=== PATIENT | female | born 1935 | race Caucasian/White ===

== ENCOUNTER 2022-02-18 12:31 | Emergency (ER) | payer MEDICARE, BC ==
[2022-02-18 12:59] VITALS: TEMP 97.7
--- NOTE | 2022-02-18 13:13 | ED ---
General Adult HPI - General Chief complaint: Fall Stated complaint: fall - hip pain Time Seen by Provider: 02/18/22 12:40 Source: patient, EMS, RN notes reviewed, old records reviewed Mode of arrival: EMS Limitations: no limitations - History of Present Illness Initial comments: This is an 86-year-old female presents emergency Department complaining of right hip pain. Patient states she is post have a hip replacement any help but today she lost her balance and fell onto her right hip. Patient denies hitting her head or neck. Patient denies any chest pain patient denies any upper extremity pain. Patient denies any back pain. Patient denies any pain of the left hip and she denies any knee pain and ankle pain or foot pain. Patient denies any chest pain or shortness of breath prior to falling patient denies being lightheaded or dizzy prior to falling. - Related Data Home Medications Medication Instructions Recorded Confirmed Alendronate Sodium [Fosamax] 70 mg PO FR 02/18/22 02/18/22 Amoxicillin 1,000 mg PO ONETIME PRN 02/18/22 02/18/22 Atorvastatin [Lipitor] 40 mg PO HS 02/18/22 02/18/22 Calcium Carbonate [Calcium] 600 mg PO DAILY@1200 02/18/22 02/18/22 Clopidogrel [Plavix] 75 mg PO HS 02/18/22 02/18/22 Cyanocobalamin (Vitamin B-12) 1,000 mcg PO DAILY@1200 02/18/22 02/18/22 [Vitamin B-12] Donepezil [Aricept] 10 mg PO HS 02/18/22 02/18/22 EPINEPHrine (Auto Inject) [Epipen] 0.3 mg IM ONCE PRN 02/18/22 02/18/22 Levothyroxine Sodium [Synthroid] 88 mcg PO AC-BRKFST@0830 02/18/22 02/18/22 Loperamide HCl [Imodium A-D] 2 - 4 mg PO QID PRN 02/18/22 02/18/22 Methenamine/Sodium Salicylate [Azo 1 tab PO BID 02/18/22 02/18/22 Urinary Tract Defense Tab] Multivit-Min/FA/Lycopen/Lutein 1 tab PO DAILY@1200 02/18/22 02/18/22 [Centrum Silver Tablet] Turmeric Root Extract [Turmeric 1,000 mg PO HS 02/18/22 02/18/22 Curcumin] amLODIPine [Norvasc] 5 mg PO HS 02/18/22 02/18/22 Allergies Allergy/AdvReac Type Severity Reaction Status Date / Time bee venom protein (honey bee) Allergy Anaphylaxis Verified 02/18/22 15:12 Review of Systems ROS Statement: Those systems with pertinent positive or pertinent negative responses have been documented in the HPI. ROS Other: All systems not noted in ROS Statement are negative. Past Medical History Past Medical History: Cancer, Hyperlipidemia, Hypertension Additional Past Medical History / Comment(s): Stroke 2021, Athrits, Skin cancer History of Any Multi-Drug Resistant Organisms: None Reported Past Surgical History: Hysterectomy, Orthopedic Surgery Additional Past Surgical History / Comment(s): cataract Past Psychological History: No Psychological Hx Reported Smoking Status: Never smoker Past Alcohol Use History: None Reported Past Drug Use History: None Reported General Exam - General Exam Comments Initial Comments: GENERAL: Patient is well-developed and well-nourished. Patient is nontoxic and well- hydrated and is in mild distress. ENT: Neck is soft and supple. No significant lymphadenopathy is noted. Oropharynx is clear. Moist mucous membranes. Neck has full range of motion without elici ting any pain. EYES: The sclera were anicteric and conjunctiva were pink and moist. Extraocular movements were intact and pupils were equal round and reactive to light. Eyelids were unremarkable. PULMONARY: Unlabored respirations. Good breath sounds bilaterally. No audible rales rhonchi or wheezing was noted. CARDIOVASCULAR: There is a regular rate and rhythm without any murmurs gallops or rubs. ABDOMEN: Soft and nontender with normal bowel sounds. SKIN: Skin is clear with no lesions or rashes and otherwise unremarkable. NEUROLOGIC: Patient is alert and oriented x3. Cranial nerves II through XII are grossly intact. Motor and sensory are also intact. Normal speech, volume and content. Symmetrical smile. MUSCULOSKELETAL: Patient has right lateral hip tenderness on palpation. Patient has increased pain particularly with external rotation of the hip. LYMPHATICS: No significant lymphadenopathy is noted PSYCHIATRIC: Normal psychiatric evaluation. Limitations: no limitations Course Vital Signs 02/18/22 12:51 Temperature 97.7 F Pulse Rate 79 Respiratory 18 Rate Blood Pressure 143/64 O2 Sat by Pulse 95 Oximetry Medical Decision Making - Medical Decision Making I interpreted the pelvis and hip x-ray. It x-ray showed no acute fracture. Patient was able to ambulate at her baseline in the ER Disposition Clinical Impression: Fall, Contusion, hip Disposition: HOME SELF-CARE Condition: Good Instructions (If sedation given, give patient instructions): Fall Prevention for Older Adults (ED), Hip Contusion (ED) Is patient prescribed a controlled substance at d/c from ED?: No Referrals: Cesilia Crow DO [Primary Care Provider] - 1-2 days Time of Disposition: 16:13
--- NOTE | 2022-02-18 14:56 | XR ---
EXAMINATION TYPE: XR Hip RT and AP Pelvis DATE OF EXAM: 02/18/2022 COMPARISON: NONE HISTORY: Trauma injury with pelvic and right hip pain. TECHNIQUE: A single AP view of the pelvis is obtained. Two views of the right hip are obtained. FINDINGS: There is no acute fracture/dislocation evident in the pelvis. The sacroiliac joints appea r symmetric and within normal limits. Pubic symphysis is intact. Metallic hardware from left hip surg jacqueline is partially imaged. A 1.8 cm calcification over the right lower quadrant of uncertain etiology j ust above the iliac crest. Two views of right hip show advanced degenerative change with marked joint space narrowing. There is joint space sclerosis and subchondral cystic change throughout the acetabulum and the femoral head. M oderate to severe acetabular spurring and head neck collar spurring in the proximal femur is present . No acute displaced fracture. The overlying soft tissue is unremarkable. IMPRESSION: As above..
[2022-02-18 16:32] VITALS: BP 145/70; PULSE 78; RESP 15
== END 2022-02-18 16:31 | disposition home or self-care (01) ==
LOC: EC 12:31
DX: S70.02XA Contusion of left hip, initial encounter (principal); I10 Essential (primary) hypertension; E78.5 Hyperlipidemia, unspecified; Z79.02 Long term (current) use of antithrombotics/antiplatelets; Z91.030 Bee allergy status; Z79.899 Other long term (current) drug therapy; W01.0XXA Fall on same level from slipping, tripping and stumbling without subsequent striking against object, initial encounter; Y92.009 Unspecified place in unspecified non-institutional (private) residence as the place of occurrence of the external cause
CPT/HCPCS: 73502; 99284

== ENCOUNTER → 2022-12-21 | Outpatient (CLI) | payer MEDICARE ==
--- NOTE | 2022-12-21 12:42 | CT ---
EXAMINATION TYPE: CT pelvis wo con CT DLP: 413.2 mGycm, Automated exposure control for dose reduction was used. DATE OF EXAM: 12/21/2022 12:29 PM COMPARISON: None CLINICAL INDICATION:Female, 87 years old with history of Z96.641 PRESENCE OF RIGHT ARTIFICIAL HIP RANULFO NT; right inguinal pain r/o artifical joint crack TECHNIQUE: Standard CT of the pelvis without IV or oral contrast. Lack of IV or oral contrast limit s evaluation of solid and hollow organ viscera. Coronal and sagittal reformats were performed. FINDINGS: BLADDER: Poorly visualized due to streak artifact from hip prosthesis. REPRODUCTIVE: Poorly visualized due to streak artifact from hip prosthesis. BOWEL: No focal wall thickening or surrounding inflammatory changes. No evidence of bowel obstruction . PERITONEUM: No evidence of pneumoperitoneum or free fluid. VASCULATURE: Atherosclerotic calcification of the vasculature. MUSCULOSKELETAL: No acute osseous abnormalities. Subacute to chronic appearing right sacral alar frac ture with sclerosis and callus formation. Diffuse bone demineralization. Postsurgical changes from bi lateral total hip arthroplasty. This creates streak artifact which limits evaluation. Hardware appear s intact. Degenerative changes of the pubic symphysis. LYMPH NODES: No gross evidence for lymphadenopathy. SOFT TISSUE/ABDOMINAL WALL: Unremarkable IMPRESSION: 1. 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 No CT evidence for complication. 2. Subacute to chronic appearing fracture of the right sacral alar with sclerosis and callus formatio n.
== END | disposition home or self-care (01) ==
LOC: RADCTMAIN 12:02
PROVIDERS: ATTEND Orthopaedic Surgery
DX: M25.551 Pain in right hip (principal); S32.10XA Unspecified fracture of sacrum, initial encounter for closed fracture; E78.5 Hyperlipidemia, unspecified; I10 Essential (primary) hypertension; Z85.9 Personal history of malignant neoplasm, unspecified; Z96.643 Presence of artificial hip joint, bilateral
CPT/HCPCS: 72192